=== PATIENT | female | born 1995 | race Hispanic/Latino ===

== ENCOUNTER 2016-11-01 23:32 | Inpatient (IN) | payer OTHER ==
[~2016-11-01] VITALS: Ht 160 cm; Wt 73.0 kg
[~2016-11-01 23:32] MED LIST: FERR SULFATE325 MG PO; MULTIVITAMIN PO; NO CURRENT MEDS; PRENATAL1 TA1; RANITIDINE150 MG PO; RANITIDINE25 MG/ML PO; STROMECTOL3 MG PO; ULTRAM50 M1 OR
--- NOTE | 2016-11-01 23:45 | NUR ---
ARRIVED FROM HOME WITH C/O CONTRACTIONS THAT WERE STRONGER. WHEN ARRIVED IN ED TO TRANSPORT PT TO UNIT PT SCREAMING WITH CONTRACTIONS WITH 4 FAMILY MEMBERS ALL AROUND HER. PT STATES SHE WAS TRIAGED EARLIER TODAY AND SENT HOME. PT STATES WAS WALKING AT HOME AND HAS BEEN [facility] SINCE 10/31. PT CLARIFIES THAT CONTRACTIONS WERE NOT CONSISTENT ALL DAY WOULD BE CLOSE AND THEN SPACE OUT. HOWEVER, AROUND 1200 TODAY PT WAS UNABLE TO TALK THROUGH THEM AND THEY HAVE CONTINUED TO GET STRONGER. PT TAKEN TO 256 TO CHANGE INTO HOSPITAL GOWN. PT RATES PAIN 10/10 IN LOWER BACK. EFM APPLIED. SVE PERFORMED 3-/-2 SOFT POSTERIOR. INFORMED PT THAT WE WOULD CONTINUE WATCHING ON MONITOR AND THEN HAVE PT AMBULATE AND PERFORM KNEE CHEST. PT AGREES WITH PLAN OF CARE. SIGNIFICANT OTHER AT BEDSIDE AND SUPPORTIVE.
[2016-11-01 23:50] VITALS: BP 128/81
[2016-11-02] VITALS (44 sets, daily range): BP systolic 108–150; BP diastolic 53–94
--- NOTE | 2016-11-02 00:24 | NUR ---
PT OOB TO BR TO VOID. PT STANDING AT BEDSIDE LEANING OVER BED SHAKING HIPS SIDE TO SIDE. EDUCATED SIGNIFICANT OTHER AND SISTER ON HOW TO PERFORM COUNTER PRESSURE. DEMONSTRATED UNDERSTANDING.
[2016-11-02 00:29] LABS: HEMATOCRIT 34.9 % (37.0-47.0); HEMOGLOBIN 11.8 g/dl (12.0-16.0); IMMATURE GRANULOCYTES 0.7 % (0.0-1.0); MEAN CELL VOLUME 84.7 fL CALC (80.0-100.0); MEAN CORPUSCULAR HGB 28.6 pG CALC (26.0-32.0); MEAN CORPUSCULAR HGB CONC 33.8 g/L CALC (32.0-36.0); NEUT# 13.04 thou/uL (2.00-7.15); RED BLOOD COUNT 4.12 mill/uL (4.20-5.60); RED CELL DISTRI WIDTH 19.2 % (11.5-15.5)
[2016-11-02 00:44] LABS: ALBUMIN 3.8 g/dL (3.2-5.0); ALKALINE PHOSPHATASE 164 u/l (38-126); ANION GAP 13 (6-22 (CALC)); BILIRUBIN, TOTAL 0.3 mg/dL (0.0-1.4); BUN 10 mg/dL (7-17); BUN/CREATININE RATIO 15 (12-20 (CALC)); CALCIUM 9.8 mg/dL (8.4-10.2); CARBON DIOXIDE 21 mmol/l (22-30); CHLORIDE 106 mmol/l (95-108); CREATININE 0.6 mg/dL (0.5-1.0); GFR > 60 ML/MIN (>=60 (CALC)); GFR FOR AFR.AMER. > 60 ML/MIN (>=60 (CALC)); GLUCOSE 100 mg/dL (65-105); POTASSIUM 3.8 mmol/l (3.5-5.1); SGOT/AST 33 u/l (14-36); SGPT/ALT 31 u/l (9-52); SODIUM 136 mmol/l (137-146)
--- NOTE | 2016-11-02 01:10 | NUR ---
EFM APPLIED. FHT 145, NO DECEL WITH CONTRACTION OR AFTER. EFM REMOVED. PT TO CONTINUE LEANING OVER BED SHAKING HIP WITH COUNTER PRESSURE. THEN WILL AMBULATE. SISTER AND SIGNIFICANT OTHER AT BEDSIDE AND SUPPORTIVE. ENCOURAGED TO CALL WITH NEEDS.
--- NOTE | 2016-11-02 02:20 | NUR ---
PT DANGLING AT BEDSIDE. ATTEMPTED TO FIND FHT, ONLY INTERMITTENTLY. PT TO SEMI-FOWLERS TO ASSESS FHT. PT STATES WILL REST FOR 20 MINUTES THEN AMBULATE. PT STATES THAT PAIN IS NOT BAD IN BACK. SVE 4-5/80/-3 MID POSITION. PT TURNED TO RIGHT SIDE WITH PEANUT BALL BTW LEGS, US ADJUSTED. SIGNIFICANT OTHER AND SISTER AT BEDSIDE AND SUPPORTIVE. ENCOURAGED TO CALL WITH NEEDS.
--- NOTE | 2016-11-02 03:15 | NUR ---
PT OOB TO BR TO VOID. TOLERATED WELL. PT RETURNED TO DANGLE AT BEDSIDE TO WAIT FOR SISTER TO BRING UP BAG WITH SHOES IN THEM. WHEN SISTER RETURNED PT BUT ON CLOTH SLIPPER AND AMBULATE TO HALLWAY. PT TOLERATES WELL, STOPPING TO BREATH THROUGH CONTRACTIONS WITH TWO SISTERS AT BEDSIDE. SIGNIFICANT OTHER IN RECLINER IN CHAIR.
--- NOTE | 2016-11-02 03:30 | NUR ---
EDUCATED PT ON BIRTHING BALL USE AND DEMONSTRATED USE. PT USING BALL AT BEDSIDE. SISTER'S AND SIGNIFICANT OTHER AT BEDSIDE AND SUPPORTIVE.
--- NOTE | 2016-11-02 03:53 | NUR ---
PT AMBULATING IN THE HALLWAY, STOPPING TO BREATH THROUGH CONTRACTIONS. SISTER'S AT SIDE.
--- NOTE | 2016-11-02 05:15 | NUR ---
PT CALLED OUT WITH LOF. THIS RN NOTED CLEAR FLUID. SVE PERFORMED /-3. PT C/O SEVERE BACK PAIN. 0440 PT PLACED IN RIGHT SIDE LYING RELEASE WITH COUNTER PRESSURE FOR 10 MINUTES. 0551 PT PLACED IN LEFT SIDE LYING POSIITON WITH COUNTER PRESSURE FOR 10 MINUTES. THEN PT PLACED IN THRONES POSITION AT 0508. US ADJUSTED AT 0515. PT STATES PAIN IN BACK IS BETTER AND NORMAL SHOW NOTED. ICE CHIPS PROVIDED. SIGNIFICANT OTHER AND SISTER AT BEDSIDE AND SUPPORTIVE.
--- NOTE | 2016-11-02 06:30 | NUR ---
PT TURNED TO LEFT SIDE WITH PEANUT BALL BTW LEGS. PT STATES LITTLE RELIEF WITH PAIN MEDICATION. PT FEELING PAIN IN BACK AGAIN. SIGNIFICANT OTHER AND SISTER'S AT BEDSIDE AND SUPPORTIVE.
--- NOTE | 2016-11-02 06:45 | NUR ---
REPORT RECEIVED BY ANTHONY RUBI RN. PT IN SEMI GRIMM POSITION, BREATHING HEAVY WITH EACH CONTRACTION, REQUESTING EPIDURAL. DR. HOOD AT BEDSIDE, SVE DONE BY , . MD MADE AWARE OF PT'S REQUEST, LR BOLUS STARTED FOR EPIDURAL, AND FOR VARIABLE DECELS. ASSESSMENT DONE, WNL. FAMILY AT BEDSIDE. DISCUSSED PLAN OF CARE WITH PT AND FAMILY. ALL VERBALIZED UNDERSTANDING. ORIENTED BY RADHA AQUINO RN.
--- NOTE | 2016-11-02 06:49 | NUR ---
DR. HOOD AT BEDSIDE. SVE PERFORMED -/0. JING CARE PROVIDED. PT STATES PAIN MEDICINE DIDN'T REALLY HELP. SISTER AND SIGNIFICANT OTHER AT BEDSIDE AND SUPPORTIVE.
--- NOTE | 2016-11-02 07:03 | NUR ---
MOVED PT VIA WHEELCHAIR WITH FAMILY MEMBERS AT SIDE, TO BR#1. EFM IN PLACED.
--- NOTE | 2016-11-02 07:15 | NUR ---
DR. HOOD MADE AWARE THAT FHR IS DIFFICULT TO OBTAIN VIA EXTERNAL US, COMING TO PLACE INTERNAL MONITOR.
--- NOTE | 2016-11-02 07:35 | NUR ---
DR. HOOD AT BEDSIDE. FSE PLACED BY
--- NOTE | 2016-11-02 07:40 | NUR ---
ELECTRIC SHAVER MECHANIC UNABLE TO COME AT THIS TIME FOR EPIDURAL PLACEMENT. TECHNICAL SALES REPRESENTATIVES AND DR. HOOD AWARE. PT AND FAMILY NOTIFIED, PT CRYING STATES " I CAN'T WAIT ANY MORE". SIGNIFICANT OTHER VERBALIZED BEING UPSET THAT PT HAS TO WAIT FOR PAIN RELIEF. PT AND FAMILY REASSURED.
--- NOTE | 2016-11-02 07:43 | NUR ---
NUBAIN GIVEN DURING A CONTRACTION FOR PAIN.
--- NOTE | 2016-11-02 08:25 | NUR ---
PT AND FAMILY REMAIN UPSET ABOUT EPIDURAL PLACEMENT DELAY. PT REPOSITIONED TO KNEE AND CHEST TO HELP WITH BACK PAIN.
--- NOTE | 2016-11-02 08:36 | NUR ---
DR. HOOD AT BEDSIDE, SVE DONE, AWHILE PT IS IN KNEE CHEST. MD STATES PT MIGHT BE COMPLETE, BUT DIFFICULT TO ASSESS DUE TO POSITION.
--- NOTE | 2016-11-02 08:39 | NUR ---
PT REPOSITION TO SEMI GRIMM.
--- NOTE | 2016-11-02 08:55 | NUR ---
DR. HOOD AT BEDSIDE, SVE DONE, ANTERIOR LIP.
--- NOTE | 2016-11-02 09:00 | NUR ---
JOB CAPTAIN PLACED, WELL PULSE OX. BOTH MONITORS (CARDIAC AND PULSE OX) BEING MONITORED EXTERNALLY FROM THE EFM MACHINE EFM IS MONITORING FSE.
--- NOTE | 2016-11-02 09:05 | NUR ---
Clarice LOMBARDI, COMPUTER ASSEMBLER AT BEDSIDE.
--- NOTE | 2016-11-02 09:09 | NUR ---
ASSISTED PT TO SIT UP, FOR EPIDURAL PLACEMENT.
--- NOTE | 2016-11-02 09:13 | NUR ---
TIME OUT AT THIS TIME.
--- NOTE | 2016-11-02 09:17 | NUR ---
SKIN PREP PER RN IV THERAPY AT THIS TIME.
--- NOTE | 2016-11-02 09:19 | NUR ---
SKIN NUMBING PER HOUSING AND RESIDENCE LIFE DIRECTOR.
--- NOTE | 2016-11-02 09:24 | NUR ---
SKIN NUMBING AT DIFFERENT SITE, PER WILDLIFE POLICY PROFESSIONAL.
--- NOTE | 2016-11-02 09:26 | NUR ---
CATH IN PLACE.
--- NOTE | 2016-11-02 09:28 | NUR ---
TEST DOSE AT THIS TIME, PER SOLDER TECHNICIAN. HEART RATE 115 PER MANAGER PRIMARY.
--- NOTE | 2016-11-02 09:30 | NUR ---
CATH TAPED IN PLACE PER DIRECTOR OF STRATEGIC COMMUNICATIONS.
--- NOTE | 2016-11-02 09:32 | NUR ---
BOLUS PER COMMUNITY HEALTH NURSE SUPERVISOR.
--- NOTE | 2016-11-02 09:35 | NUR ---
PT LAIED DOWN IN BED, TO LEFT TILT. PEANUT BALL UNDER RIGHT LEG.
--- NOTE | 2016-11-02 09:39 | NUR ---
EPIDURAL MAINTENANCE DOSE STARTED PER SENIOR TELECOMMUNICATIONS CONSULTANT.
--- NOTE | 2016-11-02 10:00 | NUR ---
FROM 0930 TO 1000 - EFM SHOWED EARLY, VARIABLE AND PROLONGED DECELS. MODERATE VARIABILITY WITH ACCELS PRESENT.
--- NOTE | 2016-11-02 10:06 | NUR ---
SANDOVAL PLACED, USING STERILE TECHNIQUE.
--- NOTE | 2016-11-02 10:10 | NUR ---
PT REPOSTIONED TO RIGHT TILT. PEANUT BALL UNDER LEFT LEG.
--- NOTE | 2016-11-02 10:22 | NUR ---
LR RATE CHANGED TO 125ML/H.
--- NOTE | 2016-11-02 10:30 | NUR ---
PT REPOSITIONED TO LEFT TILT. PEANUT BALL UNDER THE RIGHT LEG. PT DENIES ANY PAIN, EPIDURAL WORKING WELL.
--- NOTE | 2016-11-02 11:00 | NUR ---
REPOSITION TO RIGHT TILT, PEANUT BALL UNDER LEFT LEG.
--- NOTE | 2016-11-02 11:30 | NUR ---
REPOSITION PT LEFT TILT, PEANUT BALL UNDER RIGHT LEG. PT C/O OF PRESSURE DURING CONTRACTION. DENIES PAIN. WILL MONITOR.
--- NOTE | 2016-11-02 11:49 | NUR ---
DR. HOOD IN TO SEE PT, SVE DONE, ANTERIOR LIP. PT REPOSITIONED TO HIGH GRIMM.
--- NOTE | 2016-11-02 12:03 | NUR ---
PT STARTED TO PUSH, PER HER REQUEST OF FEELING INTENSE PRESSURE.
--- NOTE | 2016-11-02 12:13 | NUR ---
1209- REPOSITION TO LEFT SIDE. 1210- O2 AT 15LPM PER NONREBREATHER MASK APPLIED, LR BOULS STARTED. 1211- REPOSITION TO RIGHT SIDE. 1213- DR. HOOD AT BEDSIDE, REVIEWING STRIP FOR PROLONGED DECEL.
--- NOTE | 2016-11-02 12:15 | NUR ---
PUSHING RESUMED WHILE PT IS ON RIGHT LATERAL.
--- NOTE | 2016-11-02 12:25 | NUR ---
REPOSITIONED TO LEFT LATERAL, CONTINUES TO PUSH.
--- NOTE | 2016-11-02 12:30 | NUR ---
O2 OFF, PT REPOSITION TO SEMI FOWLERS.
--- NOTE | 2016-11-02 12:42 | NUR ---
PT REPOSITIONED TO LEFT SIDE AND PUSHING.
--- NOTE | 2016-11-02 12:46 | NUR ---
PT REPOSITION TO RIGHT SIDE AND PUSHING.
--- NOTE | 2016-11-02 12:53 | NUR ---
REPOSITION TO SEMI FOLWERS AND PUSHING.
--- NOTE | 2016-11-02 12:58 | NUR ---
REPOSITION TO LEFT SIDE AND PUSHING.
--- NOTE | 2016-11-02 13:00 | NUR ---
FROM 1230 TO 1300, FHR BASELINE APPEARS TO BE 155, MODERATE VARIABILITY. VARIABLE AND PROLONGED DECELS PRESENT. LR BOLUS CONTINUES TO RUN, PT CONTINUES TO PUSH ON DIFFERENT POSITIONS SUCH LEFT AND RIGHT LATERAL.
--- NOTE | 2016-11-02 13:04 | NUR ---
REPOSITION TO SEMI FOWLERS AND PUSHING.
--- NOTE | 2016-11-02 13:22 | NUR ---
REPOSITION TO LEFT LATERAL AND PUSHING.
--- NOTE | 2016-11-02 13:25 | NUR ---
PT REPOSITIONED TO SEMI FOWLERS, LR BOLUS STARTED.
--- NOTE | 2016-11-02 13:26 | NUR ---
REPOSITION TO RIGHT SIDE. Clarice LOMBARDI CRNA AT BEDSIDE RETAPING EPIDURAL PREVIOUS TAPE WAS LOOSE.
--- NOTE | 2016-11-02 13:46 | NUR ---
DR. HOOD AT BEDSIDE, PREPARING FOR DELIVERY.
--- NOTE | 2016-11-02 13:53 | NUR ---
BARBARA APPLIED PER MD. O2 AT 15LPM VIA NONBREATHER REAPPLIED.
--- NOTE | 2016-11-02 13:56 | NUR ---
ASSISTED VAGINAL DELIVERY OF FEMALE INFANT PER DR. HOOD. SEE DELIVERY RECORD.
--- NOTE | 2016-11-02 14:09 | NUR ---
PLACENTA OUT AT THIS TIME.
--- NOTE | 2016-11-02 14:12 | NUR ---
LIDOCAINE USED BY MD TO NUMB PT FOR LACERATION REPAIR.
--- NOTE | 2016-11-02 14:13 | NUR ---
LAC BEING REPAIRED BY DR. HOOD WITH 3.0 VICRYL.
--- NOTE | 2016-11-02 14:15 | NUR ---
EPIDURAL REMOVED BY BRITTANY GONZALEZ. TIP INTACT.
--- NOTE | 2016-11-02 15:40 | NUR ---
ASSISTED PT TO THE BATHROOM, JING CARE DONE, PANTIES , PADS PLACED, AND ICE PACK APPLIED. GOWN CHANGED. SANDOVAL TO REMAIN IN PLACE ON TILL THIS EVENING PER MD. PT TRANSFER TO ROOM 205 VIA WHEELCHAIR. ORIENTED TO NEW ROOM. TEACHING DONE. PT VERBALIZED UNDERSTANDING.
--- NOTE | 2016-11-02 18:30 | NUR ---
PT IS RESTING IN BED ,SIGNIFICANT OTHER AT BED SIDE. PT STATED "NO PAIN, JUST VAGINAL DISCOMFORT " ICE PACK APPLIED. PT DENIES ANY NEEDS AT THIS TIME.
--- NOTE | 2016-11-02 18:50 | NUR ---
DR. HOOD AT BEDSIDE AT THIS TIME. REPORT GIVEN TO Cherelle YBARRA RN.
--- NOTE | 2016-11-02 19:00 | NUR ---
ASSESSMENT COMPLETED CHARTED. SANDOVAL DRAINING CLEAR YELLOW URINE. FAMILY AT BEDSIDE VISITING. INFORMED PT WOULD REMOVE SANDOVAL AND GET UP TO BATHROOM ONCE VISITOR LEFT. PT AGREED. NO NEEDS EXPRESSED. ENCOURAGED TO CALL WITH NEEDS.
--- NOTE | 2016-11-02 20:30 | NUR ---
PITOCIN COMPLETED. IV SALINE LOCKED. SANDOVAL REMOVED- PT TOLERATED WELL. SANDOVAL AT 600 URINE IN IT. PT OOB TO BR. PT ATTEMPTED TO VOID, NO VOID AT THIS TIME. EDUCATED PT ON JING CARE- DEMONSTRATED UNDERSTANDING. ICE PACK AND [place]INE SPRAY APPLIED TO PERINEUM. GOWN CHANGED. PT TOLERATED WELL. PT BACK TO BED. ANOTHER VISITOR ARRIVED. SIGNIFICANT OTHER AT BEDSIDE. PT DENIES ANY NEEDS AT THIS TIME. ENCOURAGED TO CALL.
--- NOTE | 2016-11-02 21:12 | NUR ---
EDUCATED ON CHANGING 'S DIAPER AND ASSISTED PT WITH ON LEFT BREAST USING FOOTBALL HOLD. NO SUCCESSFULL LATCHED ATTAINED. ENCOURAGED PT TO ATTEMPT IN 2 HOURS OR EARLIER IF INFANT SHOWS FEEDING CUE. EDCUATED ON FEEDING CUES. ENCOURAGED PT TO ATTEMPT TO GET UP TO VOID IN 2-3 HOURS. EDUCATED ON LOCHIA CHANGED AND TO CALL IF PASSES CLOT BIGGER THEN GOLF BALL OR SATURATES A JING PAD IN AN HOUR. PT VERBALIZED UNDERSTANDING AND DENIES ANY OTHER NEEDS AT THIS TIME. AT BEDSIDE.
--- NOTE | 2016-11-03 | NUR ---
PT RESTING QUIETLY WITH EYES CLOSED. PT AWOKE WHEN ENTERED THE ROOM. PT REFUSED TO GET UP TO ATTEMPT TO VOID- STATING DOESN'T FEEL THE NEED. EDUCATED PT ON LOCHIA AND ATTEMPTING TO VOID EVERY 2-3 HOURS. PT STATES FEELS LITTLE CRAMPING- DENIES PAIN MEDICATION. EDUCATION BOOKLET PROVIDED TO PT DISCUSSED EARLIER IN SHIFT. SIGNIFICANT OTHER SLEEPING ON COT IN ROOM. DENIES ANY NEEDS. ENCOURAGED TO CALL.
[2016-11-03 04:30] VITALS: BP 121/75
--- NOTE | 2016-11-03 05:00 | NUR ---
PT OOB TO BR TO VOID. 600 ML URINE. JING CARE DEMONSTRATED BY PT. ENCOURAGED PT TO GET UP AND ATTEMPT TO VOID EVERY 2-3 HOURS EVEN IF DOES NOT FEEL THE URGE. PT VERBALIZED UNDERSTANDING. PT C/O CRAMPING AND BODY BEING SORE- MEDICATED ORDERED AND INFORMED PT THAT IF BLADDER IS FULL IT WILL CAUSE CRAMPING WELL. CBC DRAWN FROM IV WITH FIRST 5 ML BLOOD WASTED. IV FLUSHES W/O RESISTANCE. GOWN CHANGED AND PARTIAL LINEN CHANGED PT LEAKING LOCHIA ON GOWN AND UNDERPAD. PT HAS FULL WATER PITCHER. PT ATTEMPTING TO BREAST FEED INFANT AT THIS TIME. NO NEEDS EXPRESSED. ENCOURAGED TO CALL WITH NEEDS.
[2016-11-03 05:59] LABS: HEMATOCRIT 32.9 % (37.0-47.0); IMMATURE GRANULOCYTES 0.7 % (0.0-1.0); MEAN CELL VOLUME 85.7 fL CALC (80.0-100.0); MEAN CORPUSCULAR HGB 28.6 pG CALC (26.0-32.0); MEAN CORPUSCULAR HGB CONC 33.4 g/L CALC (32.0-36.0); NEUT# 15.3 thou/uL (2.00-7.15); RED BLOOD COUNT 3.84 mill/uL (4.20-5.60); RED CELL DISTRI WIDTH 19.7 % (11.5-15.5)
--- NOTE | 2016-11-03 06:45 | NUR ---
REPORT RECEIVED BY ANTHONY RUBI RN. ORIENTED BY RADHA AQUINO RN.
[2016-11-03 07:04] VITALS: BP 111/67
--- NOTE | 2016-11-03 07:04 | NUR ---
PT IS RESTING IN BED. SIGNIFICANT OTHER AT BEDSIDE. ASSESSMENT DONE, VS DONE, PT IS STABLE. DISCUSSED PLAN OF CARE WITH PT AND TEACHING. PT VERBALIZED UNDERSTANDING. PT DENIES ANY NEEDS AT THIS TIME.
--- NOTE | 2016-11-03 07:15 | NUR ---
SETUP PT FOR A SHOWER. SIGNIFICANT OTHER IN ROOM.
--- NOTE | 2016-11-03 08:02 | NUR ---
EDUCATED MOM ABOUT FEEDING CUES. ASSISTED MOM ON BREAST FEEDING INFANT. ASSISTED MOM ON THE USE OF BREAST PUMP TO HELP WITH NIPPLE. MOM VERBALIZED UNDERSTANDING.
--- NOTE | 2016-11-03 09:50 | NUR ---
ASSISTED PT WITH BREAST FEEDING. WITH REPEATED ATTEMPTS FOR TO LATCHE ON.
--- NOTE | 2016-11-03 10:30 | NUR ---
GAVE PT MOTRIN FOR ABDOMEN PAIN/CRAMPING. PT DENIES ANY NEEDS AT THIS TIME. FAMILY MEMBER IN ROOM.
--- NOTE | 2016-11-03 12:30 | NUR ---
PT STATED THAT SHE IS HAVING ABDOMINAL CRAMPING. GAVE PT A HOT PACK TO USE. PT VERBALIZED UNDERSTANDING. PT DENIES ANY NEEDS AT THIS TIME.
--- NOTE | 2016-11-03 13:10 | NUR ---
PT BREAST FEED FOR 2 MINUTES, FAMILY MEMBER IN RROM.
--- NOTE | 2016-11-03 13:28 | NUR ---
PT BREAST FEED WITH MANY ATTEMPTS FOR 1 MINUTE. THEN SHE BOTTLE FEED , 20ML. PER DR. JOSEPH, DUE TO INFANT NOT VOIDING.
--- NOTE | 2016-11-03 14:00 | NUR ---
PT IS SITTING IN RECLINER HOLDING INFANT IN ARMS. SIGNIFICANT OTHER IN ROOM. ASSISTED PT TO SETUP TIGR VIEDO ABOUT . PT VERBALIZED UNDERSTANDING. PT DENIES ANY NEEDS AT THIS TIME.
[2016-11-03 16:10] VITALS: BP 118/63
--- NOTE | 2016-11-03 16:10 | NUR ---
PT IS RESTING IN BED, SIGNIFICANT OTHER HOLDING INFANT. VS DONE, PT IS STABLE. PT STATED THAT SHE HAS ABDOMINAL CRAMPING, PAIN IS 4/10. PT REFUSED PAIN MED. PT STATED THAT SHE WANTED ANOTHER HOT PACK. PT STATED "THAT THE HOT PACK WORK FOR HER PAIN". PT DENIES ANY NEEDS AT THIS TIME.
--- NOTE | 2016-11-03 16:20 | NUR ---
IV SITE REMOVED, PT TOLERATED WELL.
--- NOTE | 2016-11-03 16:34 | NUR ---
PT ATTEMPTED TO BREASTFEED , BUT FAMILY MEMBERS CAME IN. PT REQUESTED A BOTTLE TO FEED INFANT.
--- NOTE | 2016-11-03 17:30 | NUR ---
ASSISTED PT WITH BREAST SHELL. SIGNIFICANT OTHER IN ROOM. PT DENIES ANY NEEDS AT THIS TIME.
--- NOTE | 2016-11-03 17:59 | NUR ---
REPORT PREPARED FOR ONCOMING SHIFT.
--- NOTE | 2016-11-03 19:32 | NUR ---
PT RESTING IN BED HOLDING . FAMILY AT BEDSIDE. PT C/O UTERINE CRAMPING AND ACHING BODY- MEDICATED ORDERED. ICE WATER PROVIDED. PT DENIES ANY NEEDS AT THIS TIME. ENCOURAGED TO CALL WITH NEEDS.
[2016-11-03 22:15] VITALS: BP 117/54
--- NOTE | 2016-11-03 22:15 | NUR ---
ASSESSMENT COMPLETED CHARTED. ENCOURAGED TO PT READ OVER DISCHARGE TEACHING AND WOULD GO OVER VERBALLY WITH PT. PT COMPLETED TIGR VIDEO- VERBALIZED UNDERSTANDING AND DENIES ANY QUESTION. NO NEEDS EXPRESSED AT THIS TIME. ENCOURAGED TO CALL WITH NEEDS.
--- NOTE | 2016-11-04 01:00 | NUR ---
PT OOB TO BR TO VOID. PT DENIES ANY NEEDS AT THIS TIME. SIGNIFICANT OTHER RESTIN ON COT IN ROOM. ENCOURAGED TO CALL WITH NEEDS.
[2016-11-04 04:56] VITALS: BP 121/75
--- NOTE | 2016-11-04 04:57 | NUR ---
PT OOB TO BR TO VOID. PT C/O BODY ACHING- MEDICATED ORDERED. ICE WATER PROVIDED. SIGNIFICANT OTHER SLEEPING ON COT. PT DENIES ANY OTHER NEEDS. ENCOURAGED PT TO CALL WITH NEEDS.
--- NOTE | 2016-11-04 06:56 | NUR ---
REPORT RECEIVED FROM Belia RUBI RN. PT IS AWAKE AND ASKING ABOUT DISCHARGE. B/F ASLEEP ON COT. DISCHARGE PLAN OF CARE DISCUSSED.
--- NOTE | 2016-11-04 07:43 | NUR ---
DR. HOOD HERE AND D/C ORDERS RECEIVED. ASSESSMENT WNL.
[2016-11-04 07:45] VITALS: BP 118/70
--- NOTE | 2016-11-04 09:57 | NUR ---
PT AND FAMILY AWAITING PIPE OUT WORKER FOR DISCHARGE
[2016-11-04] MEDS ORDERED: IBUPROFEN600 MG PO (10:06)
[2016-11-04] MEDS ORDERED: ACCUPRIL5 MG PO (10:07)
--- NOTE | 2016-11-04 11:29 | NUR ---
PATIENT MEDICATED FOR PAIN REQUESTED; SEE EMAR. PATIENT DENIES ANY FURTHER NEEDS AT THIS TIME.
--- NOTE | 2016-11-04 12:15 | NUR ---
Discharge instructions given and reviewed. Pt. verbalizes understanding. Discharged in stable condition via Wheelchair to Home accompanied by volunteer.
== END 2016-11-04 12:15 | disposition home or self-care (01) | DRG 775 ==
LOC: OB 23:32 → OBOP 23:32 → OB 23:50
PROVIDERS: ADMIT Obstetrics & Gynecology; ATTEND Obstetrics & Gynecology
PROC: 10D07Z6 Extraction of Products of Conception, Vacuum, Via Natural or Artificial Opening (ICD-10-PCS; principal; 2016-11-02)
PROC: 0HQ9XZZ Repair Perineum Skin, External Approach (ICD-10-PCS; 2016-11-02)
DX: O75.81 Maternal exhaustion complicating labor and delivery (principal); O70.0 First degree perineal laceration during delivery; Z37.0 Single live birth; Z3A.38 38 weeks gestation of pregnancy

== ENCOUNTER 2016-12-06 09:44 | Emergency (ER) | payer SELFPAY ==
[~2016-12-06] VITALS: Ht 160 cm; Wt 65.2 kg
[~2016-12-06 09:44] MED LIST changes: +ACCUPRIL5 MG PO; +IBUPROFEN600 MG PO
[2016-12-06] MEDS ORDERED: PRE-NATAL PO (10:14)
[2016-12-06 10:59] LABS: INFLUENZA A NONE DETECTED (NONE DETECT); INFLUENZA B NONE DETECTED (NONE DETECT)
[2016-12-06] MEDS ORDERED: AMOXICILLIN500 MG PO (11:01)
[2016-12-06 11:18] VITALS: BP 121/79
== END 2016-12-06 11:18 | disposition home or self-care (01) | DRG 153 ==
LOC: ED 09:44
PROVIDERS: Emergency Medicine
DX: J02.0 Streptococcal pharyngitis (principal); R09.81 Nasal congestion; R05 Cough; R50.9 Fever, unspecified